=== PATIENT | female | born 1960 | race Caucasian/White ===

== ENCOUNTER 2020-06-15 14:27 | Emergency (ER) | payer OTHER, SELFPAY ==
--- NOTE | ~2020-06-15 | XR_ITS ---
EXAMINATION: XR chest 1V portable DATE: 06/15/2020 15:50 INDICATION: Cough. Upper abdominal pain. COVID 19. TECHNIQUE: frontal view of the chest was obtained. COMPARISON: None FINDINGS: Subtle groundglass and reticular opacities in the bilateral lower lung zones. No pleural effusion or pneumothorax. The cardiomediastinal silhouette is normal. Small metallic densities potentially a BB p rojecting over the lateral right clavicle. Visualized bones and soft tissues are otherwise unremarkab le. IMPRESSION: 1. Subtle interstitial and airspace opacities in the bilateral lower lung zones which could represent pneumonia, pulmonary edema or atelectasis. Reviewed, dictated and finalized at location A.
[2020-06-15 14:45] VITALS: BP 114/68; PULSE 84; RESP 18; TEMP 36.3; O2SAT 100
[2020-06-15 14:48] VITALS: BP 114/68; PULSE 84; RESP 18; O2SAT 100
[2020-06-15 14:48] LABS: Basophils Percent Auto 0.4 % (0.2-1.2); Eosinophils Absolute Auto 0.1 K/mm3 (0-0.3); Eosinophils Percent Auto 1.1 % (0-4.4); Hematocrit 35.5 % (37.0-47.0); Hemoglobin 11.9 g/dL (12.0-15.0); Immature Granulocyte Absolute 0.04 K/mm3 (0.00-0.031); Immature Granulocyte Percent A 0.5 % (0-0.5); Lymphocytes Absolute Auto 1.85 K/mm3 (0.9-3.2); Lymphocytes Percent Auto 22.3 % (18.3-44.2); Mean Corpuscular HGB Conc 33.5 g/dl (32-36); Mean Corpuscular Hemoglobin 29.2 pg (26-34); Mean Platelet Volume 10.1 fl (7.4-10.4); Monocytes Absolute Auto 0.6 K/mm3 (0.1-0.6); Monocytes Percent Auto 7.2 % (2.6-8.5); Neutrophils Absolute Auto 5.7 K/mm3 (1.3-6.7); Neutrophils Percent Auto 68.5 % (45.5-73.1); Platelet Count Result 190 k/mm3 (150-375); Red Blood Count 4.08 M/mm3 (4.2-5.4); Red Cell Distribution Width 12.8 % (11.5-14.5); White Blood Count 8.3 K/mm3 (4.5-10.0)
[2020-06-15 14:58] LABS: Alanine Aminotransferase 14 U/L (4-35); Albumin Level 3.7 g/dL (3.5-5.1); Alkaline Phosphatase 60 U/L (38-126); Anion Gap 8 mmol/L (8-16); Aspartate Amino Transferase 20 U/L (14-36); Bilirubin,Total 0.5 mg/dL (0.2-1.3); Blood Urea Nitrogen 19 mg/dL (7-17); Carbon Dioxide 27 mmol/L (22-30); Chloride 105 mmol/L (98-107); Estimated CRCL calculation 55 ml/min; Estimated Glomerular Filt Rate 57; Glucose 123 mg/dL (65-105); Lipase 194 U/L (23-300); Potassium 3.3 mmol/L (3.4-5.0); Sodium 140 mmol/L (137-145)
[2020-06-15 15:01] LABS: Add Urine Microscopic? NO; Appearance Urine Clear (Clear); Bilirubin Urine Negative (Negative); Blood Urine Negative (Negative); Color Urine Straw (Yellow); Glucose Urine UA Negative (Negative); Ketones Urine Negative (Negative); Leukocyte Esterase Ur Negative LEU/UL (Negative); Nitrate Urine Negative (Negative); Protein Urine Negative (Negative); Urobilinogen Urine Negative mg/dL (<2.0)
--- NOTE | 2020-06-15 15:33 | ED.ABDPAIN ---
HPI - Abdominal Pain General Chief Complaint: Abdominal Pain Stated Complaint: covid +, abd pain Time Seen by Provider: 06/15/20 14:30 Source: patient Mode of arrival: ambulatory Limitations: no limitations History of Present Illness HPI narrative: Patient is a 59-year-old female who presents to emergency department for evaluation of abdominal pain noting that she was diagnosed with COVID 14 days ago patient notes that over the last 2 days has felt bloated with difficulty with p.o. intake secondary to not feeling well patient denies any fever chills nausea vomiting continues to have cough but is otherwise resting comfortably in the room upon arrival in no distress has not been seen for this complaint Related Data Home Medications Medication Instructions Recorded Confirmed No Home Medications 06/15/20 06/15/20 Allergies Allergy/AdvReac Type Severity Reaction Status Date / Time Penicillins Allergy Mild Itching Verified 06/15/20 15:33 Review of Systems Review of Systems: All systems reviewed & are unremarkable except as noted in HPI and below PMFSH Social History Social History Gender identity (if verbalized by the patient): Female Exam Narrative: Exam Narrative: GENERAL: Well-appearing, well-nourished, and in no acute distress. HEAD: Normocephalic, atraumatic. EYES: PERRLA and EOMI. ENT: Nares clear, no rhinorrhea or epistaxis. Mucous membranes moist. CHEST: Clear to auscultation. No respiratory distress. Slight crackles in the lung base HEART: Regular rate and rhythm. No murmur heard. Normal peripheral pulses. ABDOMEN: Soft, right-sided abdominal tenderness no rebound or guarding, nondistended, normal active bowel sounds. EXTREMITIES: Normal range of motion. No edema. SKIN: Warm, dry, no rash. NEURO: No focal deficits. Alert and oriented x3. PSYCH: Normal mood and affect. Course Course Emergency Course: Patient in the room in no distress aware of case findings treatment plan and diagnosis will be treated symptomatically felt appropriate for discharge home had improvement with medications Vital Signs Vital signs: Vital Signs Temperature 97.4 F L 06/15/20 14:45 Pulse Rate 84 06/15/20 14:45 Respiratory Rate 18 06/15/20 14:45 Blood Pressure 114/68 06/15/20 14:45 Pulse Oximetry 100 06/15/20 14:45 Temperature 97.4 F L 06/15/20 14:45 Pulse Rate 74 06/15/20 16:22 Respiratory Rate 18 06/15/20 16:22 Blood Pressure 118/67 06/15/20 16:22 Pulse Oximetry 99 06/15/20 16:22 MDM - Abdominal Pain MDM Narrative Medical decision making narrative: Patient at this time resting comfortably in the room in no distress felt appropriate for outpatient reevaluation. Afebrile nontoxic-appearing without emesis no high risk changes in the blood work or imaging Lab Data Result diagrams: 06/15/20 14:41 06/15/20 14:41 Labs: Lab Results 06/15/20 06/15/20 06/15/20 Range/Units 14:41 14:41 14:52 WBC 8.3 (4.5-10.0) K/mm3 RBC 4.08 L (4.2-5.4) M/mm3 Hgb 11.9 L (12.0-15.0) g/dL Hct 35.5 L (37.0-47.0) % MCV 87.0 (80-100) fl MCH 29.2 (26-34) pg MCHC 33.5 (32-36) g/dl RDW 12.8 (11.5-14.5) % Plt Count 190 (150-375) k/mm3 MPV 10.1 (7.4-10.4) fl Immature Gran % (Auto) 0.5 (0-0.5) % Neut % (Auto) 68.5 (45.5-73.1) % Lymph % (Auto) 22.3 (18.3-44.2) % [place] % (Auto) 7.2 (2.6-8.5) % Eos % (Auto) 1.1 (0-4.4) % Baso % (Auto) 0.4 (0.2-1.2) % Lymph # (Auto) 1.85 (0.9-3.2) K/mm3 [place] # (Auto) 0.6 (0.1-0.6) K/mm3 Eos # (Auto) 0.1 (0-0.3) K/mm3 Baso # (Auto) 0.0 (0.0-0.1) K/mm3 Abs Immat Gran (auto) 0.04 H (0.00-0.031) K/mm3 Absolute Neuts (auto) 5.7 (1.3-6.7) K/mm3 Absolute Nucleated RBC 0.0 (0.0-0.012) K/mm3 Nucleated RBC % 0.0 (0.0-0.2) % Sodium 140 (137-145) mmol/L Potassium 3.3 L (3.4-5.0) mmol/
[2020-06-15] MEDS: SODIUM CHLORIDE 0.9% IV 1,000 ML 999 ML IV CONT (15:49)
[2020-06-15] MEDS: ONDANSETRON INJ 4 MG/2 ML VIAL IV PUSH (15:50)
[2020-06-15] MEDS: FAMOTIDINE 20 MG/2 ML VIAL IV PUSH (15:52)
[2020-06-15 16:22] VITALS: BP 118/67; PULSE 74; RESP 18; O2SAT 99
[2020-06-15 17:17] VITALS: BP 109/56; PULSE 71; RESP 20; TEMP 36.6; O2SAT 100
== END 2020-06-15 17:20 | disposition home or self-care (01) ==
PROVIDERS: Emergency Medicine Emergency Medical Services; Emergency Provider Emergency Medicine
DX: U07.1 COVID-19 (principal); R10.9 Unspecified abdominal pain; R91.8 Other nonspecific abnormal finding of lung field
CPT/HCPCS: 36415; 71045; 80053; 81003; 83690; 85025; 96361; 96365; 96375; 99284; J0131; J2405; J7030

== ENCOUNTER 2022-06-09 15:00 | Emergency (ER) | payer OTHER, SELFPAY ==
[2022-06-09 15:05] VITALS: BP 134/56; PULSE 84; RESP 18; TEMP 36.6; O2SAT 100
--- NOTE | 2022-06-09 15:14 | PC.NURSE ---
per Dr. Stallings, no test to be ordered in triage at this time
--- NOTE | 2022-06-09 16:18 | ED.GENADULT ---
HPI - General Adult General Chief complaint: Eye Problems Stated complaint: L eye visual disturbances x 90 min Time Seen by Provider: 06/09/22 15:37 History of Present Illness HPI narrative: This is a 61-year-old female presenting to ED with chief complaint of flashes and floaters in her left eye. Patient says that they started approximately 1:00 p.m. today. She states that she is having flashers on the left side of her eye and then she has thousands of black dots in her vision. Patient has never having this happen before. Patient denies loss of visual acuity. She denies loss of peripheral vision. She denies any pain in her eye. Related Data Home Medications Medication Instructions Recorded Confirmed No Home Medications 06/15/20 06/15/20 Allergies Allergy/AdvReac Type Severity Reaction Status Date / Time Penicillins Allergy Mild Itching Verified 06/09/22 15:23 Review of Systems Review of Systems: CONSTITUTIONAL: Denies night sweats. EYES: No eye pain ENT: Denies rhinorrhea CARDIOVASCULAR: Denies palpitations RESPIRATORY: Denies hemoptysis GASTROINTESTINAL: Denies hematemesis GENITOURINARY: Denies hematuria. SKIN: Denies rash MUSCULOSKELETAL: Denies myalgia. NEUROLOGIC: Denies weakness. PSYCHIATRIC: Denies delusions PMFSH Past Medical History Medical History Anxiety Surgical History Surgical History H/O partial thyroidectomy Social History Social History Gender identity (if verbalized by the patient): Female Exam Narrative: APPEARANCE: No apparent distress. Head atraumatic. EYES: PERRLA/EOMI, No conjunctival injection. Pupils are 2 mm equal and reactive. The cornea is not cloudy. POCUS Eye: revealed a globe that is round in nature. The lens is in the correct location. There is no evidence of a retinal detachment. There are no findings in the posterior compartment. Visual acuity is 20/100 in both eyes. Fundoscopy: could be was attempted but was indeterminate. NOSE: Normal no drainage NECK: Supple, Trachea midline RESPIRATORY: CTAB, No increased work of breathing. CARDIOVASCULAR: S1S2 appreciated ABDOMINAL: Soft, nontender, nondistended, MUSCULOSKELETAl: No obvious deformities NEURO: Alert. Moving 4/4 extremities SKIN:: Warm, dry. Normal color PSYCHIATRIC: Normal affect Course Vital Signs Vital signs: Vital Signs Temperature 97.9 F 06/09/22 15:05 Pulse Rate 84 06/09/22 15:05 Respiratory Rate 18 06/09/22 15:05 Blood Pressure 134/56 L 06/09/22 15:05 Pulse Oximetry 100 06/09/22 15:05 Oxygen Delivery Room Air 06/09/22 15:05 Temperature 97.9 F 06/09/22 15:05 Pulse Rate 84 06/09/22 15:05 Respiratory Rate 18 06/09/22 15:05 Blood Pressure 134/56 L 06/09/22 15:05 Pulse Oximetry 100 06/09/22 15:05 Oxygen Delivery Room Air 06/09/22 15:05 Medical Decision Making MDM Narrative Medical decision making narrative: this is a 61-year-old female presenting to the ED with flashes and floaters in her left eye. It is nonpainful. There are no external findings. Visual acuity is intact. Her peripheral vision is intact. I did a point of care I ultrasound to evaluate for retinal detachment and saw nothing in the posterior chamber. I attempted funduscopy but was unable to visualize the retina. The patient's exam is most consistent with posterior vitreous detachment. The patient will be discharged with close Ophthalmology follow-up. Differential Diagnosis Differential Diagnosis: Posterior vitreous detachment, retinal detachment, CRAO Vital Signs Vital Signs: Vital Signs Temperature 97.9 F 06/09/22 15:05 Pulse Rate 84 06/09/22 15:05 Respiratory Rate 18 06/09/22 15:05 Blood Pressure 134/56 L 06/09/22 15:05 Pulse Oximetry 100 06/09/22 15:05 Oxygen Delivery Room Air
[2022-06-09 16:50] VITALS: BP 118/70; PULSE 72; RESP 16; TEMP 36.3; O2SAT 100
== END 2022-06-09 16:51 | disposition home or self-care (01) ==
PROVIDERS: Emergency Provider Emergency Medicine
DX: H43.812 Vitreous degeneration, left eye (principal); Z90.89 Acquired absence of other organs
CPT/HCPCS: 99281

== ENCOUNTER 2024-03-17 10:48 | Emergency (ER) | payer OTHER, SELFPAY ==
--- NOTE | ~2024-03-17 | CT_ITS ---
EXAMINATION: CT abdomen pelvis wo con DATE: 03/17/2024 12:41 INDICATION: Right flank pain. TECHNIQUE: Computed tomography (CT) of the abdomen and pelvis was performed without intravenous contr ast. Automated exposure control and iterative reconstruction technique were employed. The dose-length product was 523.46 mGy-cm. COMPARISON: None. FINDINGS: The visualized portions of the lung bases demonstrate mild atelectasis. No pleural effusion . The heart size is normal. No pericardial effusion. The liver, gallbladder, pancreas, adrenal glands , and kidneys are normal. Calcifications in the spleen are consistent with old granulomatous disease. There are no dilated loops of bowel. The appendix is normal. There are no pathologically enlarged ly mph nodes. There is no free intraperitoneal fluid. Aortic atherosclerosis is noted. There is severe l umbar spondylosis. IMPRESSION: 1. No urolithiasis. Reviewed, dictated and finalized at location A. IMPRESSION: 1. No urolithiasis.
[2024-03-17 11:51] LABS: Appearance Urine Clear (Clear); Basophils Percent Auto 0.5 % (0.2-1.2); Bilirubin Urine Negative (Negative); Blood Urine Negative (Negative); Color Urine Yellow (Yellow); Eosinophils Absolute Auto 0.1 K/mm3 (0-0.3); Eosinophils Percent Auto 1.5 % (0-4.4); Glucose Urine UA Negative (Negative); Hematocrit 39.6 % (37.0-47.0); Hemoglobin 13.1 g/dL (12.0-15.0); Immature Granulocyte Absolute 0.02 K/mm3 (0.00-0.031); Immature Granulocyte Percent A 0.3 % (0-0.5); Ketones Urine Negative (Negative); Leukocyte Esterase Ur Negative LEU/UL (Negative); Lymphocytes Absolute Auto 1.85 K/mm3 (0.9-3.2); Lymphocytes Percent Auto 27.8 % (18.3-44.2); Mean Corpuscular HGB Conc 33.1 g/dl (32-36); Mean Corpuscular Hemoglobin 28.9 pg (26-34); Mean Corpuscular Volume 87.2 fl (80-100); Mean Platelet Volume 10.8 fl (7.4-10.4); Monocytes Absolute Auto 0.4 K/mm3 (0.1-0.6); Monocytes Percent Auto 6.2 % (2.6-8.5); Neutrophils Absolute Auto 4.2 K/mm3 (1.3-6.7); Neutrophils Percent Auto 63.7 % (45.5-73.1); Nitrate Urine Negative (Negative); Platelet Count Result 221 k/mm3 (150-375); Protein Urine Negative (Negative); Red Blood Count 4.54 M/mm3 (4.2-5.4); Red Cell Distribution Width 12.9 % (11.5-14.5); Specific Grav Ur 1.005 (1.001-1.035); Urobilinogen Urine 0.2 mg/dL (<2.0); White Blood Count 6.7 K/mm3 (4.5-10.0); pH Urine 7.5 (5.0-9.0)
[2024-03-17] MEDS: SODIUM CHLORIDE 0.9% IV 1,000 ML 999 ML IV CONT (11:52)
[2024-03-17] MEDS: KETOROLAC 30 MG/ML VIAL (*BKC) IV PUSH (11:53)
[2024-03-17 11:55] VITALS: BP 111/62; PULSE 62; RESP 17; O2SAT 98
[2024-03-17 11:55] LABS: Add Urine Microscopic? NO
[2024-03-17 12:01] LABS: Lipase 160 U/L (23-300)
[2024-03-17 12:03] LABS: Alanine Aminotransferase 19 U/L (6-35); Albumin Level 4.5 g/dL (3.5-5.1); Alkaline Phosphatase 70 U/L (38-126); Anion Gap 8 mmol/L (4-12); Aspartate Amino Transferase 21 U/L (14-36); Bilirubin,Total 0.8 mg/dL (0.2-1.3); Blood Urea Nitrogen 20 mg/dL (7-17); Calcium 9.5 mg/dL (8.4-10.2); Carbon Dioxide 26 mmol/L (22-30); Chloride 105 mmol/L (98-107); Estimated CRCL calculation 48 ml/min; Estimated Glomerular Filt Rate 50; Glucose 112 mg/dL (65-110); Potassium 4.1 mmol/L (3.4-5.0); Sodium 139 mmol/L (137-145)
--- NOTE | 2024-03-17 13:08 | ED.GENADULT ---
HPI - General Adult General Chief complaint: Abdominal Pain Stated complaint: R FLANK PAIN,ABD PAIN Time Seen by Provider: 03/17/24 11:05 History of Present Illness HPI narrative: Patient is a 63-year-old female who presents ER with right-sided flank pain. Ongoing for 2 days. Mild nausea. No urinary frequency urgency or dysuria. No hematuria. No history kidney stones. No abdominal pain/diarrhea/ constipation. No alleviating factors. No known injury. Related Data Allergies Allergy/AdvReac Type Severity Reaction Status Date / Time Penicillins Allergy Mild Itching Verified 06/09/22 15:23 Review of Systems Review of Systems: All systems reviewed & are unremarkable except as noted in HPI and below Constitutional: Constitutional: Reports no additional constitutional complaints Cardiovascular: Cardiovascular: Reports no additional cardiovascular complaints Respiratory: Respiratory: Reports no additional respiratory complaints Gastrointestinal: Gastrointestinal: Denies abdominal pain, Denies constipation, Denies diarrhea, Reports nausea and Denies vomiting Genitourinary: Genitourinary: Denies hematuria, Denies nocturia, Denies dysuria, Denies pelvic pain and Reports flank pain PMFSH Past Medical History Medical History Anxiety Surgical History Surgical History H/O partial thyroidectomy Social History Social History Gender identity (if verbalized by the patient): Female Exam Narrative: GENERAL: Well-appearing, well-nourished, and in no acute distress. HEAD: Normocephalic, atraumatic. ENT: Mucous membranes moist. CHEST: Clear to auscultation. No respiratory distress. Point tenderness right posterior chest wall inferior aspect over the T10 rib. No bruising. HEART: Regular rate and rhythm. Normal peripheral pulses. ABDOMEN: Soft, nontender, nondistended. EXTREMITIES: Normal range of motion. No edema. SKIN: Warm, dry, no rash. NEURO: Alert and oriented x3. PSYCH: Normal mood and affect. Course Course Emergency Course: Informed of results. Pain improved with toradol D/c. Vital Signs Vital signs: Vital Signs Pulse Rate 62 03/17/24 11:55 Respiratory Rate 17 03/17/24 11:55 Blood Pressure 111/62 07/06/24 11:55 Pulse Oximetry 03/17/24 11:55 Pulse Rate 62 03/17/24 11:55 Respiratory Rate 03/17/24 11:55 Blood Pressure 111/62 03/17/24 11:55 Pulse Oximetry 03/17/24 11:55 Medical Decision Making Vital Signs Vital Signs: Vital Signs Pulse Rate 62 03/17/24 11:55 Respiratory Rate 03/17/24 11:55 Blood Pressure 111/03/17/24 11:55 Pulse Oximetry 03/17/24 11:55 Pulse Rate 62 03/17/24 11:55 Respiratory Rate 03/17/24 11:55 Blood Pressure 111/03/17/24 11:55 Pulse Oximetry 03/17/24 11:55 Lab Data 03/17/24 11:44 03/17/24 11:44 Labs: Lab Results 03/17/24 Range/Units 11:44 WBC 6.7 (4.5-10.0) K/mm3 RBC 4.54 (4.2-5.4) M/mm3 Hgb 13.1 (12.0-15.0) g/dL Hct 39.6 (37.0-47.0) % MCV 87.2 (80-100) fl MCH 28.9 (26-34) pg MCHC 33.1 (32-36) g/dl RDW 12.9 (11.5-14.5) % Plt Count 221 (150-375) k/mm3 MPV 10.8 H (7.4-10.4) fl Immature Gran % (Auto) 0.3 (0-0.5) % Neut % (Auto) 63.7 (45.5-73.1) % Lymph % (Auto) 27.8 (18.3-44.2) % [place] % (Auto) 6.2 (2.6-8.5) % Eos % (Auto) 1.5 (0-4.4) % Baso % (Auto) 0.5 (0.2-1.2) % Lymph # (Auto) 1.85 (0.9-3.2) K/mm3 [place] # (Auto) 0.4 (0.1-0.6) K/mm3 Eos # (Auto) 0.1 (0-0.3) K/mm3 Baso # (Auto) 0.0 (0.0-0.1) K/mm3 Abs Immat Gran (auto) 0.02 (0.00-0.031) K/mm3 Absolute Neuts (auto) 4.2 (1.3-6.7) K/mm3 Absolute Nucleated RBC 0.000 (0.0-0.012) K/mm3 Nucleated RBC % 0.0 (0.0-0.2) % Sodium 139 (137-145) mmol/L Potassium
[2024-03-17 13:24] VITALS: BP 112/78; PULSE 74; RESP 18; O2SAT 100
== END 2024-03-17 13:24 | disposition home or self-care (01) ==
PROVIDERS: Emergency Provider Emergency Medicine
DX: S39.011A Strain of muscle, fascia and tendon of abdomen, initial encounter (principal); X58.XXXA Exposure to other specified factors, initial encounter
CPT/HCPCS: 36415; 74176; 80053; 81003; 83690; 85025; 96361; 96374; 99284; J1885; J7030

== ENCOUNTER 2024-05-17 07:52 | Emergency (ER) | payer OTHER, SELFPAY ==
[2024-05-17] VITALS (7 sets, daily range): BP systolic 104–118; BP diastolic 75–85; PULSE 68–85; RESP 16; TEMP 36.6–36.7; O2SAT 96–100
--- NOTE | ~2024-05-17 | XR_ITS ---
EXAMINATION: XR chest 2V DATE: 05/17/2024 09:12 INDICATION: Shortness of breath and dizziness TECHNIQUE: PA and lateral views of the chest were obtained. COMPARISON: Chest radiograph dated 06/15/2020 FINDINGS: Mild biapical pleural-parenchymal scarring. The lungs remain otherwise clear with no focal airspace o pacities, pulmonary edema, pleural effusion or pneumothorax. The cardiomediastinal silhouette is norm al. Screw fixation of an old healed right clavicle fracture. IMPRESSION: 1. No acute cardiopulmonary disease. Reviewed, dictated and finalized at location A.
--- NOTE | ~2024-05-17 | CT_ITS ---
EXAMINATION: CTA BRAIN/CAROTID DATE: 05/17/2024 08:53 INDICATION: Vertigo TECHNIQUE: Computed tomographic angiography (CTA) of the head and neck was performed with 100 mL Omni paque-350 intravenous contrast. Multiplanar reconstructions and maximum intensity projection 3D-recon structions of the carotid arteries and of the intracranial arteries were created by the technologist on a separate workstation. Precontrast CT of the head was also obtained. Automated exposure control and iterative reconstruction technique were employed.The dose-length product was 1470.15 mGy-cm. COMPARISON: None. FINDINGS: Carotid arteries: Visualized thoracic aorta is normal in caliber with no dissection. There is no evident atheroscleroti c plaque with 0% stenosis of the right and left carotid bulbs relative to normal distal artery lumen diameter (NASCET criteria). Bilateral vertebral arteries are codominant with no evident atheroscleros is. Mild biapical pleural-parenchymal scarring. Visualized superior mediastinum is unremarkable. Righ t thyroid lobe is either developmentally or surgically absent. Cervical soft tissues are otherwise un remarkable. Moderate cervical spondylosis. Head: No acute intracranial hemorrhage, acute infarction or abnormal extra axial fluid collection. 2.2 x 2. 1 x 2.0 cm calcified and enhancing extra-axial mass along the anterior falx consistent with a meningi lana. Ventricles are normal and symmetric. No other masses or abnormally enhancing lesions identified. The orbits, paranasal sinuses and mastoid air cells are normal. Intracranial arteries There is no hemodynamically significant stenosis in the vertebral, basilar and internal carotid arter ies. Vertebral arteries are codominant. There are no aneurysms identified. Both A1 and P1 segments a re patent. There is also a patent anterior to indicating artery. Cerebral arterial arborization appea rs symmetric. IMPRESSION: 1. No evident atherosclerotic plaque with 0% stenosis of the right and left carotid bulbs relative to normal distal artery lumen diameter (NASCET criteria). 2. . 2.2 cm calcified extra-axial mass along the anterior falx consistent with a meningioma. No acute intracranial process. 3. Unremarkable cerebral CT angiogram with no evident stenosis, aneurysm or thrombosis. Reviewed, dictated and finalized at location A. IMPRESSION: 1. No evident atherosclerotic plaque with 0% stenosis of the right and left car otid bulbs relative to normal distal artery lumen diameter (NASCET criteria). 2. . 2.2 cm calcified extra-axial mass along the anterior falx consistent with a meningioma. No acute intracranial process. 3. Unremarkable cerebral CT angiogram with no evident stenosis, aneurysm or thr ombosis.
--- NOTE | 2024-05-17 07:53 | ECG_ITS ---
Test Date: 2024-05-17 07:59:45 Measurements Intervals [place] Rate: 78 P: 49 MD: 147 QRS: 51 QRSD: 86 T: 52 QT: 368 QTc: 419 Interpretive Statements SINUS RHYTHM BASELINE ARTIFACT- I, III, AVR, AVL NORMAL ECG No previous ECG available for comparison Electronically Signed On 05-17-2024 08:17:36 CDT by Noble Hidalgo D.O.
--- NOTE | 2024-05-17 08:04 | ED.CHESTPAIN ---
HPI - Chest Pain General Chief Complaint: Chest Pain Stated Complaint: dizzy, nausea, chest pain Time Seen by Provider: 05/17/24 07:58 History of Present Illness HPI narrative: Patient yesterday had been having some slight vertigo, went to sleep and when she woke up this morning and try to stand up she felt like the room is spinning around her, was quite nauseous, tried taking a shower, felt even worse, at that point she mentioned her she also had a very slight chest tightness, at which point they came into the hospital. States that the chest tightness barely feels like it is there, does not radiate, cannot recall when it started. She does have a sister who of a heart attack in her 60s. Related Data Allergies Allergy/AdvReac Type Severity Reaction Status Date / Time Penicillins Allergy Mild Itching Verified 05/17/24 08:05 Review of Systems Review of Systems: All systems reviewed & are unremarkable except as noted in HPI and below PMFSH Past Medical History Medical History Anxiety Surgical History Surgical History H/O partial thyroidectomy Social History Social History Gender identity (if verbalized by the patient): Female Exam Narrative: EXAMINATION OF ORGAN SYSTEMS/BODY AREAS: Constitutional: Vital signs per nursing GENERAL: Holding head very still appearing uncomfortable HEAD: Normal with no signs of head trauma. EYES: EOMI, conjunctiva normal, PERRL, no nystagmus ENT: Hearing grossly intact LUNGS: Nonlabored breathing. HEART: [Regular rate and rhythm] ABD: [Soft], [nontender to palpation] EXT: Normal range of motion SKIN: [No rashes or lesions.] NEURO: [Alert and oriented x 3. No gross focal sensory or strength deficits. No facial droop.] PSYCH: Normal affect Course Vital Signs Vital signs: Vital Signs Temperature 98.1 F 05/17/24 07:57 Pulse Rate 77 05/17/24 07:57 Respiratory Rate 16 05/17/24 07:57 Blood Pressure 118/79 05/17/24 07:57 Pulse Oximetry 99 09/05/24 07:57 Oxygen Delivery Room Air 05/17/24 07:57 Temperature 97.8 F 05/17/24 11:00 Pulse Rate 85 05/17/24 14:15 Respiratory Rate 16 05/17/24 14:15 Blood Pressure 113/85 05/17/24 14:15 Pulse Oximetry 96 05/17/24 14:15 Oxygen Delivery Room Air 05/17/24 09:34 MDM - Chest Pain MDM Narrative Medical decision making narrative: ED COURSE AND MEDICAL DECISION MAKIN-year-old female presenting with vertigo but also very small amount of chest tightness. EKG done in triage negative for acute ischemic changes. Cardiac workup is initiated. EKG: Performed in triage and interpreted by me. Normal sinus rhythm. Rate 78. Normal axis. OH normal. QRS duration normal. QTc normal. No pathologic Q waves. No ST segment elevation or depression to suggest acute ischemia. No RV strain pattern. HEART score is 1 with no acute ischemic changes on EKG and negative troponin making ACS unlikely. No DVT symptoms or shortness of breath making PE unlikely. Presentation not consistent with dissection or aneurysm without radiation of pain or pulse deficits. CXR negative for mediastinal widening. No abdominal pain or signs of sepsis that would be concerning for esophageal perforation or mediastinitis. No cardiomegaly or JVD to suggest pericardial effusion/tamponade. HEART Score: 1. (Risk of major adverse cardiac events over 6 weeks: Score of 0-3 is low risk <2% ; Score of 4-6 is moderate risk ~12-15%; Score of 7-12 is high risk ~50%). - History - [0]. (Not suspicious 0; moderately suspicious 1; highly suspicious 2). - EKG - [0]. (No ST changes 0; non-specific ST/T changes 1; ST depression 2). - Age - 1. (<45 = 0; 46-65 = 1; >65 = 2). - Risk factors - [0]. (0 factors = 0; 1-2 factors = 1; >2 factors = 2). - Troponin - [0]. (Normal = 0; Indeterminate = 1
[2024-05-17 08:10] LABS: Basophils Percent Auto 0.6 % (0.2-1.2); Eosinophils Absolute Auto 0.1 K/mm3 (0-0.3); Eosinophils Percent Auto 1.5 % (0-4.4); Hematocrit 38.3 % (37.0-47.0); Hemoglobin 12.8 g/dL (12.0-15.0); Immature Granulocyte Absolute 0.01 K/mm3 (0.00-0.031); Immature Granulocyte Percent A 0.2 % (0-0.5); Lymphocytes Absolute Auto 2.32 K/mm3 (0.9-3.2); Mean Corpuscular HGB Conc 33.4 g/dl (32-36); Mean Corpuscular Hemoglobin 29.2 pg (26-34); Mean Corpuscular Volume 87.4 fl (80-100); Monocytes Absolute Auto 0.5 K/mm3 (0.1-0.6); Monocytes Percent Auto 7.6 % (2.6-8.5); Neutrophils Absolute Auto 3.7 K/mm3 (1.3-6.7); Neutrophils Percent Auto 55.1 % (45.5-73.1); Platelet Count Result 212 k/mm3 (150-375); Red Blood Count 4.38 M/mm3 (4.2-5.4); Red Cell Distribution Width 12.9 % (11.5-14.5); White Blood Count 6.6 K/mm3 (4.5-10.0)
[2024-05-17 08:25] LABS: Alanine Aminotransferase 15 U/L (6-35); Albumin Level 4.1 g/dL (3.5-5.1); Alkaline Phosphatase 57 U/L (38-126); Anion Gap 9 mmol/L (4-12); Aspartate Amino Transferase 19 U/L (14-36); Bilirubin,Total 0.6 mg/dL (0.2-1.3); Blood Urea Nitrogen 20 mg/dL (7-17); Carbon Dioxide 24 mmol/L (22-30); Chloride 105 mmol/L (98-107); Estimated CRCL calculation 38 ml/min; Estimated Glomerular Filt Rate 38; Glucose 107 mg/dL (65-110); Lipase 241 U/L (23-300); Sodium 138 mmol/L (137-145)
[2024-05-17 08:30] LABS: Prothrombin Time 13.2 Seconds (11.1-14.7)
[2024-05-17 08:31] LABS: Partial Thromboplastin Time 25.7 Seconds (22.3-36.8)
[2024-05-17 08:36] LABS: Troponin I < 0.012 ng/mL (0.000-0.034)
[2024-05-17] MEDS: ASPIRIN 81 MG CHEWABLE TABLET 324 MG PO (09:19)
[2024-05-17] MEDS: ONDANSETRON INJ 4 MG/2 ML VIAL IV PUSH (09:20)
[2024-05-17] MEDS: MECLIZINE HCL 25 MG TABLET PO (09:20)
--- NOTE | 2024-05-17 11:20 | ECG_ITS ---
Test Date: 2024-05-17 11:25:18 Measurements Intervals [place] Rate: 62 P: 24 MA: 164 QRS: 46 QRSD: 78 T: 47 QT: 403 QTc: 412 Interpretive Statements SINUS RHYTHM BASELINE ARTIFACT- I, II, AVR, AVL, V2-V3 NORMAL ECG Compared to ECG 05/17/2024 07:59:45 No significant changes Electronically Signed On 05-17-2024 11:37:06 CDT by Noble Hidalgo D.O.
[2024-05-17] MEDS: LACTATED RINGERS 1,000 ML 999 ML IV CONT (11:22)
[2024-05-17 11:35] LABS: Troponin I < 0.012 ng/mL (0.000-0.034)
== END 2024-05-17 14:15 | disposition home or self-care (01) ==
PROVIDERS: Emergency Provider Emergency Medicine
DX: R07.89 Other chest pain (principal); R42 Dizziness and giddiness; F41.9 Anxiety disorder, unspecified
CPT/HCPCS: 36415; 70496; 70498; 71046; 80053; 83690; 84484; 85025; 85610; 85730; 93005; 96361; 96374; 99284; A9270; J2405; J7120; Q9967

== ENCOUNTER 2025-05-22 19:13 | Emergency (ER) | payer MEDICARE, OTHER, SELFPAY ==
[2025-05-22 19:26] VITALS: BP 125/64; PULSE 74; RESP 17; TEMP 36.8; O2SAT 100
--- NOTE | 2025-05-22 19:37 | ED_ITS ---
HPI - General Adult General Chief complaint: Unspecified Stated complaint: PAINFUL LUMPS IN NECK Time Seen by Provider: 05/22/25 19:47 Mode of arrival: ambulatory Limitations: no limitations History of Present Illness HPI narrative: 64-year-old female presents with concern for lumps on the left side of her neck behind her ear. She reports she noticed in this morning in their tender. She denies any redness or warmth. She denies any ear pain. She denies recent illness, upper respiratory infection symptoms. MD complaint: Lymph nodes Related Data Allergies Allergy/AdvReac Type Severity Reaction Status Date / Time Penicillins Allergy Mild Itching Verified 05/22/25 19:26 Review of Systems Review of Systems: CONSTITUTIONAL: Denies malaise, chills, sweats, or fever. EYES: Denies visual changes, redness, or discharge. ENT: Denies rhinorrhea, congestion, sinus pain, otalgia or sore throat. Reports lumps on the back of her neck that are painful MUSCULOSKELETAL: Denies myalgia. NEUROLOGIC: Denies headache. All systems reviewed & are unremarkable except as noted in HPI and below PMFSH Past Medical History Medical History Anxiety Surgical History Surgical History H/O partial thyroidectomy Social History Social History Gender identity (if verbalized by the patient): Female Comments At time of signature, agree with nursing past medical, surgical, social and family history. There is no relevant family history pertinent to the presenting complaint Exam Narrative: GENERAL: Well-appearing, well-nourished, and in no acute distress. HEAD: Normocephalic, atraumatic. EYES: PERRLA, sclera clear, and EOMI. No nystagmus. ENT: Nares clear, turbinates pink, no rhinorrhea or epistaxis. Mucous membranes moist. TM pearly gastelum with sharp light reflex bilaterally; no tragal tenderness. Oropharynx without erythema or lesions. Tonsils not enlarged and without exudate. NECK: Supple. Postauricular lymphadenopathy. CHEST: No respiratory distress. Speaks in full sentences. HEART: Regular rate and rhythm. SKIN: Warm, dry, no visible rash. NEURO: Alert and oriented x3. PSYCH: Normal mood and affect Course Course Emergency Course: Patient is aware of diagnosis, understands and agrees to treatment plan. Anticipatory guidance given. Patient agrees to follow-up as directed and is aware of reasons to seek care at the emergency department. Portions of this record may have been created with voice recognition software Level of Care: [facility] [place] Visit Vital Signs Vital signs: Vital Signs Temperature 98.3 F 05/22/25 19:26 Pulse Rate 74 05/22/25 19:26 Respiratory Rate 17 05/22/25 19:26 Blood Pressure 125/64 05/22/25 19:26 Pulse Oximetry 100 05/22/25 19:26 Oxygen Delivery Room Air 05/22/25 19:26 Temperature 98.3 F 05/22/25 19: Pulse Rate 74 05/22/25 19:26 Respiratory Rate 17 05/22/25 19:26 Blood Pressure 125/64 05/22/25 19:26 Pulse Oximetry 100 05/22/25 19:26 Oxygen Delivery Room Air 05/22/25 19:26 Reviewed. Medical Decision Making MDM Narrative Medical decision making narrative: The patient was evaluated by myself in the [facility]. History is obtained f rom patient who is an independent historian and physical exam was performed.? Available medical records were reviewed at this time. ? Exam findings show no acute concerns or changes; patient is non-toxic appearing and is in no distress. Patient is appropriate for outpatient treatment and follow-up. ? I have evaluated and discussed social determinants of health with the patient that could potentially impact subsequent diagnosis and treatment plans. ? Differential diagnosis and treatment plan were discussed with the patient. Patient agrees with discussion and after shared medical decision making agrees with plan of care. All questions were answered to the patient's satisfaction. Vital Signs Vital Signs: Vital Signs Temperature 98.3 F 05/22/25 19:26 Pulse Rate 74 05/22/25 19:26 Respiratory Rate 17 05/22/25 19:26 Blood Pressure 125/64 05/22/25 19:26 Pulse Oximetry 100 05/22/25 19:26 Oxygen Delivery Room Air 05/22/25 19:26 Temperature 98.3 F 05/22/25 19:26 Pulse Rate 74 05/22/25 19:26 Respiratory Rate 17 05/22/25 19:26 Blood Pressure 125/64 05/22/25 19:26 Pulse Oximetry 100 05/22/25 19:26 Oxygen Delivery Room Air 05/22/25 19:26 Critical Care Time Critical Care Time Critical Care Time: No Discharge Plan Discharge Clinical Impression: Lymphadenopathy Patient Disposition: Home Condition: Stable Instructions: Lymphadenopathy (ED) Additional Instructions: 1) Please follow-up with your primary care doctor if symptoms are not improving in 2 weeks. 2) If you have any urgent concerns please go to the ER. 3) Please take ibuprofen as needed for pain, you can also apply warm moist compress to the area. continue taking your home medications as usual. 4) Please read and follow information included in discharge instructions. Patient Language: Lithuanian Prescriptions: No Action famotidine [Pepcid] 20 mg tablet 20 mg PO BID Qty: 14 0RF ondansetron 4 mg tablet,disintegrating 4 mg PO Q6H PRN (Reason: nausea and vomiting) Qty: 7 0RF hyoscyamine sulfate [Levsin] 0.125 mg tablet 0.125 mg PO QID Qty: 10 0RF benzonatate 200 mg capsule 200 mg PO TID PRN (Reason: cough) Qty: 7 0RF cyclobenzaprine 10 mg tablet 10 mg PO TID PRN (Reason: muscle spasm) Qty: 20 0RF naproxen 375 mg tablet 375 mg PO BID Qty: 14 0RF meclizine 25 mg tablet 25 mg PO TID PRN (Reason: dizziness) Qty: 20 0RF Follow-up/Referrals: Gutierrez,Corwin [Other] Time of Disposition: 19:56
== END 2025-05-22 20:02 | disposition home or self-care (01) ==
PROVIDERS: Emergency Provider Nurse Practitioner
DX: R59.0 Localized enlarged lymph nodes (principal); Z90.89 Acquired absence of other organs
CPT/HCPCS: 99211; G0463

== ENCOUNTER 2025-09-02 05:20 | Emergency (ER) | payer MEDICARE, OTHER, SELFPAY ==
--- NOTE | ~2025-09-02 | CT_ITS ---
CT ABDOMEN AND PELVIS WITHOUT CONTRAST Clinical History: right flank pain Comparison: 03/17/2024 Technique: Unenhanced axial images lung bases to symphysis pubis Coronal, sagittal reformats CT images acquired with automatic exposure control for dose reduction DLP: 223 mGy-cm Findings: Without intravenous contrast, sensitivity for detecting visceral parenchymal abnormalities decreased. Lung bases: Clear. Visualized heart and pericardium: Unremarkable. Liver: Enlarged. Gallbladder: Unremarkable. Spleen: Enlarged. Lobulated contour. Pancreas: Unremarkable. Adrenal glands: Unremarkable. Kidneys: Right kidney- No hydronephrosis. No renal stones. Left kidney- No hydronephrosis. No renal stones. Distal esophagus/stomach: Unremarkable. Small bowel loops: Normal caliber and wall thickness. Colon: Diverticula. Normal caliber and wall thickness. Normal RLQ appendix. Nodes: No enlarged nodes. Peritoneum: No ascites. No free intraperitoneal air. Urinary bladder: Unremarkable. Uterus: Unremarkable. Adnexa: No masses. Bones: No acute bony abnormality. Soft tissues: Unremarkable. Unopacified abdominal aorta: No aneurysmal dilatation. Atherosclerotic disease. IMPRESSION: 1. No acute findings. Reviewed, dictated and finalized at location R. ER ON IMPRESSION: 1. No acute findings.
[2025-09-02 05:28] VITALS: BP 129/75; PULSE 65; RESP 18; TEMP 36.6; O2SAT 100
[2025-09-02 05:48] LABS: Hematocrit 38.5 % (37.0-47.0); Hemoglobin 12.7 g/dL (12.0-15.0); Immature Granulocyte Percent A 0.5 % (0-0.5); Lymphocytes Absolute Auto 2.94 K/mm3 (0.9-3.2); Mean Corpuscular HGB Conc 33.0 g/dl (32-36); Mean Corpuscular Hemoglobin 28.6 pg (26-34); Mean Corpuscular Volume 86.7 fl (80-100); Nucleated Red Blood Cells Absolute Auto 0.000 K/mm3 (0.0-0.012); Nucleated Red Blood Cells Perc 0.0 % (0.0-0.2); Platelet Count Result 203 k/mm3 (150-375); Red Blood Count 4.44 M/mm3 (4.2-5.4); White Blood Count 7.6 K/mm3 (4.5-10.0)
[2025-09-02] MEDS: SODIUM CHLORIDE 0.9% IV 1,000 ML 999 ML IV CONT (05:58)
--- NOTE | 2025-09-02 05:58 | ED_ITS ---
HPI - General Adult General Chief complaint: Back Pain/Injury <Shine Maier MD - Last Filed: 09/02/25 06:50> Stated complaint: back pain <Shine Maier MD - Last Filed: 09/02/25 06:50> Time Seen by Provider: 09/02/25 05:40 <Shine Maier MD - Last Filed: 09/02/25 06:50> History of Present Illness HPI narrative: Patient is 64-year-old female who presents emergency department chief complaint right-sided flank pain. Patient reports that she had pain started on the right side of her flank and radiates into her abdomen the patient reports he has felt nauseated with this reports symptoms are not improved by anything and or they worsened by anything. The patient states she is concerned that she may have a kidney stone the patient denies fever <Shine Maier MD - Last Filed: 09/02/25 06:50> Related Data Allergies/adverse reactions: Allergies Allergy/AdvReac Type Severity Reaction Status Date / Time Penicillins Allergy Mild Itching Verified 09/02/25 05:30 <Shine Maier MD - Last Filed: 09/02/25 06:50> Review of Systems 2 Review of Systems: A 10 system review of systems was completed on the patient and is negative except for what is stated in the HPI. Nursing and ancillary documentation was reviewed. <Shine Maier MD - Last Filed: 09/02/25 06:50> [facility] Past Medical History Medical History: Medical History Anxiety <Shine Maier MD - Last Filed: 09/02/25 06:50> Surgical History Surgical History: Surgical History H/O partial thyroidectomy <Shine Maier MD - Last Filed: 09/02/25 06:50> Social History Social History: Social History Gender identity (if verbalized by the patient): Female <Shine Maier MD - Last Filed: 09/02/25 06:50> Exam 2 Narrative: GENERAL: Well-appearing, well-nourished, and in no acute distress. HEAD: Normocephalic, atraumatic. EYES: PERRLA and EOMI. ENT: Nares clear, no rhinorrhea or epistaxis. Mucous membranes moist. NECK: Supple. CHEST: Clear to auscultation. No respiratory distress. HEART: Regular rate and rhythm. No murmur heard. Normal peripheral pulses. ABDOMEN: Soft, nontender, nondistended, normal active bowel sounds. EXTREMITIES: Normal range of motion. No edema. SKIN: Warm, dry, no rash. NEURO: No focal deficits. Alert and oriented x3. PSYCH: Normal mood and affect. <Shine Maier MD - Last Filed: 09/02/25 06:50> Course Vital Signs Vital signs: Vital Signs Temperature 97.8 F 09/02/25 05:28 Pulse Rate 65 09/02/25 05:28 Respiratory Rate 18 09/02/25 05:28 Blood Pressure 129/75 09/02/25 05:28 Pulse Oximetry 100 09/02/25 05:28 Oxygen Delivery Room Air 09/02/25 05:28 Temperature 97.8 F 09/02/25 05:28 Pulse Rate 73 09/02/25 07:52 Respiratory Rate 18 09/02/25 07:52 Blood Pressure 129/74 09/02/25 07:52 Pulse Oximetry 97 09/02/25 07:52 Oxygen Delivery Room Air 09/02/25 05:28 <Shine Maier MD - Last Filed: 09/02/25 06:50> Vital Signs Temperature 97.8 F 09/02/25 05:28 Pulse Rate 65 09/02/25 05:28 Respiratory Rate 18 09/02/25 05:28 Blood Pressure 129/75 09/02/25 05:28 Pulse Oximetry 100 09/02/25 05:28 Oxygen Delivery Room Air 09/02/25 05:28 Temperature 97.8 F 09/02/25 05:28 Pulse Rate 73 09/02/25 07:52 Respiratory Rate 18 09/02/25 07:52 Blood Pressure 129/74 09/02/25 07:52 Pulse Oximetry 97 09/02/25 07:52 Oxygen Delivery Room Air 09/02/25 05:28 <Robe Canchola MD - Last Filed: 09/02/25 18:12> [facility] Narrative Medical decision making narrative: 64-year-old female presents emergency department for evaluation for right-sided flank pain. Patient is currently afebrile with no leukocytosis and a stable hemoglobin. Patient has no significant acute abnormalities on her CMP. Patient does have history of chronic kidney disease. Patient's lipase is mildly elevated 359. Urine was significant for urinary tract infection with high bacteria and greater than 100 white blood cells. Overnight physician did order a CT scan to rule out for ureteral calculi in the CT scan was negative. Patient was treated with a dose of IV Rocephin in the emergency department. Patient will be discharged home with Keflex. Patient was updated results of the workup. Patient was comfortable plan for discharge and close follow-up. <Robe Canchola MD - Last Filed: 09/02/25 18:12> Differential Diagnosis Differential Diagnosis: Ureterolithiasis, UTI, pyelonephritis, intra-abdominal infection, diverticulitis, colitis <Shine Maier MD - Last Filed: 09/02/25 06:50> Lab Data [facility] Lab Attestation statement: I personally reviewed the patient's lab results. <Robe Canchola MD - Last Filed: 09/02/25 18:12> Result diagrams: 09/02/25 05:40 09/02/25 05:40 <Shine Maier MD - Last Filed: 09/02/25 06:50> Labs: Lab Results 09/02/25 Range/Units 05:40 WBC 7.6 (4.5-10.0) K/mm3 RBC 4.44 (4.2-5.4) M/mm3 Hgb 12.7 (12.0-15.0) g/dL Hct 38.5 (37.0-47.0) % MCV 86.7 (80-100) fl MCH 28.6 (26-34) pg MCHC 33.0 (32-36) g/dl RDW 13.0 (11.5-14.5) % Plt Count 203 (150-375) k/mm3 MPV 9.6 (7.4-10.4) fl Immature Gran % (Auto) 0.5 (0-0.5) % Neut % (Auto) 50.7 (45.5-73.1) % Lymph % (Auto) 38.5 (18.3-44.2) % [place] % (Auto) 7.2 (2.6-8.5) % Eos % (Auto) 2.4 (0-4.4) % Baso % (Auto) 0.7 (0.2-1.2) % Lymph # (Auto) 2.94 (0.9-3.2) K/mm3 [place] # (Auto) 0.6 (0.1-0.6) K/mm3 Eos # (Auto) 0.2 (0-0.3) K/mm3 Baso # (Auto) 0.1 (0.0-0.1) K/mm3 Abs Immat Gran (auto) 0.04 H (0.00-0.031) K/mm3 Absolute Neuts (auto) 3.9 (1.3-6.7) K/mm3 Absolute Nucleated RBC 0.000 (0.0-0.012) K/mm3 Nucleated RBC % 0.0 (0.0-0.2) % Sodium 139 (137-145) mmol/L Potassium 3.9 (3.4-5.0) mmol/L Chloride 108 H (98-107) mmol/L Carbon Dioxide 25 (22-30) mmol/L Anion Gap 6 (4-12) mmol/L BUN 20 H (7-17) mg/dL Creatinine 1.20 H (0.7-1.0) mg/dL Estim Creat Clear Calc 44 ml/min Estimated GFR 45 L (59 - ) Glucose 103 (65-110) mg/dL Calcium 9.2 (8.4-10.2) mg/dL Total Bilirubin 0.5 (0.2-1.3) mg/dL AST 28 (14-36) U/L ALT 28 (6-35) U/L Alkaline Phosphatase 71 (38-126) U/L Total Protein 7.1 (6.3-8.2) g/dL Albumin 4.1 (3.5-5.1) g/dL Lipase 359 H (23-300) U/L Urine Color Yellow (Yellow) Urine Appearance Cloudy H (Clear) Urine pH 6.5 (5.0-9.0) Ur Specific [place] 1.016 (1.001-1.035) Urine Protein Negative (Negative) mg/dL Urine Glucose (UA) Negative (Negative) mg/dL Urine Ketones Negative (Negative) mg/dL Ur Blood (Man) Negative (Negative) Urine Nitrate Negative (Negative) Urine Bilirubin Negative (Negative) Urine Urobilinogen 0.2 (<2.0) mg/dL Add Ur Microanalysis Reviewed Leukocyte Esterase Rfl 3+ H (Negative) MARCY/UL Urine RBC 0-2 (0-2) /hpf Urine WBC >100 H (0-3) /hpf Ur Squamous Epith Cells Few (Few) /hpf Urine Bacteria 1+ /hpf Urine Casts 0-2 <Shine Maier MD - Last Filed: 09/02/25 06:50> Lab Results 09/02/25 Range/Units 05:40 WBC 7.6 (4.5-10.0) K/mm3 RBC 4.44 (4.2-5.4) M/mm3 Hgb 12.7 (12.0-15.0) g/dL Hct 38.5 (37.0-47.0) % MCV 86.7 (80-100) fl MCH 28.6 (26-34) pg MCHC 33.0 (32-36) g/dl RDW 13.0 (11.5-14.5) % Plt Count 203 (150-375) k/mm3 MPV 9.6 (7.4-10.4) fl Immature Gran % (Auto) 0.5 (0-0.5) % Neut % (Auto) 50.7 (45.5-73.1) % Lymph % (Auto) 38.5 (18.3-44.2) % [place] % (Auto) 7.2 (2.6-8.5) % Eos % (Auto) 2.4 (0-4.4) % Baso % (Auto) 0.7 (0.2-1.2) % Lymph # (Auto) 2.94 (0.9-3.2) K/mm3 [place] # (Auto) 0.6 (0.1-0.6) K/mm3 Eos # (Auto) 0.2 (0-0.3) K/mm3 Baso # (Auto) 0.1 (0.0-0.1) K/mm3 Abs Immat Gran (auto) 0.04 H (0.00-0.031) K/mm3 Absolute Neuts (auto) 3.9 (1.3-6.7) K/mm3 Absolute Nucleated RBC 0.000 (0.0-0.012) K/mm3 Nucleated RBC % 0.0 (0.0-0.2) % Sodium 139 (137-145) mmol/L Potassium 3.9 (3.4-5.0) mmol/L Chloride 108 H (98-107) mmol/L Carbon Dioxide 25 (22-30) mmol/L Anion Gap 6 (4-12) mmol/L BUN 20 H (7-17) mg/dL Creatinine 1.20 H (0.7-1.0) mg/dL Estim Creat Clear Calc 44 ml/min Estimated GFR 45 L (59 - ) Glucose 103 (65-110) mg/dL Calcium 9.2 (8.4-10.2) mg/dL Total Bilirubin 0.5 (0.2-1.3) mg/dL AST 28 (14-36) U/L ALT 28 (6-35) U/L Alkaline Phosphatase 71 (38-126) U/L Total Protein 7.1 (6.3-8.2) g/dL Albumin 4.1 (3.5-5.1) g/dL Lipase 359 H (23-300) U/L Urine Color Yellow (Yellow) Urine Appearance Cloudy H (Clear) Urine pH 6.5 (5.0-9.0) Ur Specific [place] 1.016 (1.001-1.035) Urine Protein Negative (Negative) mg/dL Urine Glucose (UA) Negative (Negative) mg/dL Urine Ketones Negative (Negative) mg/dL Ur Blood (Man) Negative (Negative) Urine Nitrate Negative (Negative) Urine Bilirubin Negative (Negative) Urine Urobilinogen 0.2 (<2.0) mg/dL Add Ur Microanalysis Reviewed Leukocyte Esterase Rfl 3+ H (Negative) MARCY/UL Urine RBC 0-2 (0-2) /hpf Urine WBC >100 H (0-3) /hpf Ur Squamous Epith Cells Few (Few) /hpf Urine Bacteria 1+ /hpf Urine Casts 0-2 <Robe Canchola MD - Last Filed: 09/02/25 18:12> Imaging Data Radiologist's impression: ITS Impressions Abdomen/Pelvis CT 09/02/25 07:01 IMPRESSION: 1. No acute findings. <Shine Maier MD - Last Filed: 09/02/25 06:50> ITS Impressions Abdomen/Pelvis CT 09/02/25 07:01 IMPRESSION: 1. No acute findings. <Robe Canchola MD - Last Filed: 09/02/25 18:12> Discharge Plan Discharge Clinical Impression: Urinary tract infection, Flank pain <Shine Maier MD - Last Filed: 09/02/25 06:50> Patient Disposition: Home <Shine Maier MD - Last Filed: 09/02/25 06:50> Condition: Stable <Shine Maier MD - Last Filed: 09/02/25 06:50> Instructions: Antibiotic Form, Urinary Tract Infection in Women (ED) <Shine Maier MD - Last Filed: 09/02/25 06:50> Additional Instructions: Tylenol and ibuprofen for pain control. Antibiotic as directed for the urinary tract infection. Have close follow-up with your primary care physician. If you have any worsening symptoms then please call or return to the emergency department. <Shine Maier MD - Last Filed: 09/02/25 06:50> Patient Language: Sinhala <Shine Maier MD - Last Filed: 09/02/25 06:50> Prescriptions: New cephalexin 500 mg capsule 500 mg PO Q8H 7 Days Qty: 21 0RF phenazopyridine [Pyridium] 100 mg tablet 100 mg PO TID PRN (Reason: pain) Qty: 6 0RF No Action famotidine [Pepcid] 20 mg tablet 20 mg PO BID Qty: 14 0RF ondansetron 4 mg tablet,disintegrating 4 mg PO Q6H PRN (Reason: nausea and vomiting) Qty: 7 0RF hyoscyamine sulfate [Levsin] 0.125 mg tablet 0.125 mg PO QID Qty: 10 0RF benzonatate 200 mg capsule 200 mg PO TID PRN (Reason: cough) Qty: 7 0RF cyclobenzaprine 10 mg tablet 10 mg PO TID PRN (Reason: muscle spasm) Qty: 20 0RF naproxen 375 mg tablet 375 mg PO BID Qty: 14 0RF meclizine 25 mg tablet 25 mg PO TID PRN (Reason: dizziness) Qty: 20 0RF <Shine Maier MD - Last Filed: 09/02/25 06:50> Follow-up/Referrals: Caesar,Corwin Solis M.D. [Primary Care Provider] <Shine Maier MD - Last Filed: 09/02/25 06:50>
[2025-09-02] MEDS: MORPHINE SULFATE (*CRX) 4 MG/ML INJ IV PUSH (05:59)
[2025-09-02] MEDS: ONDANSETRON INJ 4 MG/2 ML VIAL IV PUSH (05:59)
[2025-09-02 06:03] LABS: Add Urine Microscopic? YES; Appearance Urine Cloudy (Clear); Glucose Urine UA Negative (Negative); Leukocyte Esterase Ur 3+ LEU/UL (Negative); Need Manual Microscopic Reviewed; Nitrate Urine Negative (Negative); Non Pathogenic Casts 0-2; Specific Grav Ur 1.016 (1.001-1.035)
[2025-09-02 06:16] LABS: Lipase 359 U/L (23-300)
[2025-09-02 06:42] LABS: Alanine Aminotransferase 28 U/L (6-35); Albumin Level 4.1 g/dL (3.5-5.1); Alkaline Phosphatase 71 U/L (38-126); Anion Gap 6 mmol/L (4-12); Aspartate Amino Transferase 28 U/L (14-36); Bilirubin,Total 0.5 mg/dL (0.2-1.3); Blood Urea Nitrogen 20 mg/dL (7-17); Calcium 9.2 mg/dL (8.4-10.2); Carbon Dioxide 25 mmol/L (22-30); Chloride 108 mmol/L (98-107); Estimated CRCL calculation 44 ml/min; Estimated Glomerular Filt Rate 45; Glucose 103 mg/dL (65-110); Potassium 3.9 mmol/L (3.4-5.0); Sodium 139 mmol/L (137-145); Total Protein 7.1 g/dL (6.3-8.2)
[2025-09-02 07:01] VITALS: BP 124/69; PULSE 71; RESP 16; O2SAT 96
[2025-09-02] MEDS: cefTRIAXone 1 GM in SODIUM CHLORIDE 0.9% IV 50 ML 100 ML IVPB (07:18)
[2025-09-02 07:25] VITALS: BP 130/74; PULSE 67; RESP 19; O2SAT 97
[2025-09-02] MEDS: PHENAZOPYRIDINE HCL 100 MG TABLET 200 MG PO (07:38)
[2025-09-02 07:52] VITALS: BP 129/74; PULSE 73; RESP 18; O2SAT 97
== END 2025-09-02 07:55 | disposition home or self-care (01) ==
PROVIDERS: Emergency Provider Emergency Medicine; PCP Family Medicine
DX: N39.0 Urinary tract infection, site not specified (principal); R10.A1 Flank pain, right side; N18.9 Chronic kidney disease, unspecified; E89.0 Postprocedural hypothyroidism
CPT/HCPCS: 36415; 74176; 80053; 81001; 83690; 85025; 87086; 96361; 96365; 96375; 99284; A9270; J0696; J2270; J2405; J7030